=== PATIENT | male | born 1965 | race Two or more races ===

== ENCOUNTER 2018-07-16 20:40 | Emergency (ER) | payer SELFPAY ==
[2018-07-16 20:45] VITALS: BP 127/79; TEMP 98.1; BMI 26.8
--- NOTE | 2018-07-16 20:45 | PDOC ---
Rapid Medical Evaluation Time Seen by Provider: 07/16/18 20:42 Medical Evaluation: 07/16/18 20:42 Pt c/o: llq pain pain to left testicle Pt on brief exam: no palpable mass, no penile discharge pt ordered for : ua, ucx, gc/chylam Pt to proceed to the ED Discharge Disposition - Diagnosis Left sided abdominal pain - Referrals - Patient Instructions - Post Discharge Activity
[2018-07-16 21:20] LABS: URINE APPEARANCE CLEAR; URINE BILIRUBIN NEGATIVE (<2.0 mg/dL); URINE COLOR LTYELLOW; URINE GLUCOSE (UA) NEGATIVE (NEGATIVE); URINE KETONE NEGATIVE (NEGATIVE); URINE LEUK ESTERASE NEGATIVE (NEGATIVE); URINE NITRITE NEGATIVE (NEGATIVE); URINE PROTEIN NEGATIVE (NEGATIVE); URINE UROBILINOGEN NEGATIVE mg/dL (0.2-1.0)
[2018-07-16 21:29] LABS: EPI CELLS RARE /HPF (FEW); URINE MUCUS RARE
--- NOTE | 2018-07-16 21:50 | PDOC ---
History of Present Illness - General Chief Complaint: Pain Stated Complaint: LEFT SIDE PAIN Time Seen by Provider: 07/16/18 20:42 History Source: Patient Exam Limitations: No Limitations - History of Present Illness Initial Comments: 53 yo M who denies having any pmh presents to the ER after 10 days of LLQ abdominal pain which radiates down to his left testicle. He states when the pain radiates to his testicle he also experiences some penile pain. He denies any palpable massess and denies any penile discharge. He reports that it is possible the pain is worsened after he goes to the gym. He also admits to dysuria, frequency, as well as urgency. Denies flank pain, hx of kidney stones, fevers, chills, infections, chest pain, SOB, difficulty breathing, N/V/C/D, back pain, headache, neck pain, blurry vision. PCP: In [place] - doesn't know his name PSH: None reported Social Hx: Drinks alcohol recreationally, denies smoking or other substance usage. Allergies: NKA, NKDA Past History - Past Medical History Allergies/Adverse Reactions: Allergies Allergy/AdvReac Type Severity Reaction Status Date / Time No Known Allergies Allergy Verified 07/16/18 20:45 COPD: No - Suicide/Smoking/Psychosocial Hx Smoking History: Never smoked Review of Systems - Review of Systems Able to Perform ROS?: Yes Comments:: CONSTITUTIONAL: Absent: fever, no chills, no fatigue EYES: Absent: visual changes ENT: Absent: ear pain, no sore throat CARDIOVASCULAR: Absent: chest pain, no palpitations RESPIRATORY: Absent: cough, no SOB GI: Absent: abdominal pain, no nausea, no vomiting, no constipation, no diarrhea GENITOURINARY: Present: dysuria, frequency, hematuria MUSKULOSKELETAL: Absent: back pain, no arthralgia, no myalgia SKIN: Absent: rash NEURO: Absent: headache *Physical Exam - Vital Signs Last Vital Signs Temp Pulse Resp BP Pulse Ox 98.1 F 70 18 127/79 97 07/16/18 20:42 07/16/18 20:42 07/16/18 20:42 07/16/18 20:42 07/16/18 20:42 - Physical Exam Comments: GENERAL: Well-appearing, well-nourished. No apparent distress. HEENT: Normocephalic, atraumatic. PERRL, EOM intact. CARDIOVASCULAR: Normal S1, S2. Regular rate and rhythm. PULMONARY: Clear to auscultation bilaterally. ABDOMEN: Soft, non-distended, non-tender. EXTREMITIES: Normal ROM in all four extremities. No gross deformities. SKIN: Warm, dry. No rash NEUROLOGICAL: No focal neurological deficits. Male Genitalia: positive: normal genitalia, testicular tenderness (Left sided), epididymus tender, hematuria. negative: discharge, CVAT Moderate Sedation - Procedure Monitoring Vital Signs: Procedure Monitoring Vital Signs Temperature 98.1 F 07/16/18 20:42 Pulse Rate 70 07/16/18 20:42 Respiratory Rate 18 07/16/18 20:42 Blood Pressure 127/79 07/16/18 20:42 O2 Sat by Pulse Oximetry (%) 97 07/16/18 20:42 ED Treatment Course - LABORATORY CBC & Chemistry Diagram: 07/16/18 22:55 07/16/18 22:55 - ADDITIONAL ORDERS Additional order review: Laboratory Results 07/16/18 20:49 Urine Color Ltyellow Urine Appearance Clear Urine pH 6.0 Ur Specific [place] 1.018 Urine Protein Negative Urine Glucose (UA) Negative Urine Ketones Negative Urine Blood 2+ H Urine Nitrite Negative Urine Bilirubin Negative Urine Urobilinogen Negative Ur Leukocyte Esterase Negative Urine WBC (Auto) None Urine RBC (Auto) 276 Ur Epithelial Cells Rare Urine Mucus Rare - RADIOLOGY Radiology Studies Ordered: Category Date Time Status SCROTUM AND CONTENTS US [US] Stat Ultrasound 07/16/18 21:41 Ordered Medical Decision Making - Medical Decision Making 53 yo M who denies having any pmh presents to the ER after 10 days of LLQ abdominal pain which radiates down to his left testicle. He states when the pain radiates to his testicle he also experiences some penile pain. - Vitals WNL DDx IBNLT: Testicular torsion, epididymitis, gonorrhea, chlamydia, E-coli, UTI/ Pylo, kidney stones, hydrocele, testicular cancer, hernia Plan: Ua/uc, testicular US, GC/chlamydia testing, re-assess. US showed ni signs of torsion. CTAP showed a 9.5 mm kidney stone at the UVJ. - Consulted Urology - Dr. Rehman who states that given the lack of renal injury, lack of fever, and patients well appearance we should DC ihim if his pain is under control and have him follow up with Dr. Rehman on Thursday in the office. Patient is well appearing and pain free. Will DC him with urology follow up. *DC/Admit/Observation/Transfer Diagnosis at time of Disposition: Left sided abdominal pain, Kidney stone on left side - Discharge Dispostion Disposition: HOME Condition at time of disposition: Stable Decision to Admit order: No - Referrals Referrals: Agustin Galaviz MD [Staff Physician] - - Patient Instructions Printed Discharge Instructions: Kidney Stones (Alternative Therapy), Kidney Stones -- Adult Additional Instructions: You came into the ER with abdominal pain. We did a cat scan which showed you have a large kidney stone. Drink plenty of fluids. Take motrin/ibuprofen/advil for pain control. 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 It is very important for you to schedule an appointment with a urologist. We are attaching the number for Dr. Galaviz. Call up his office to schedule an appointment. He can see you on Thursday. Come back to the ER if your pain worsens, you start vomiting, get a fever, or have any other new or worsening concerns. Thank you for coming to the [facility] ER. We hope you feel better soon! Print Language: SPA - Post Discharge Activity
[2018-07-16] MEDS ORDERED: SODIUM CHLORIDE 0.9% 500 ML INFUS.BAG IV ONE (22:02)
[2018-07-16 23:05] LABS: EOS % 4.8 % (0-4.5); HEMATOCRIT 39.5 % (35.4-49); HEMOGLOBIN 13.5 GM/dL (11.7-16.9); LYMPH % 47.3 % (8-40); MCH 30.3 pg (25.7-33.7); MCHC 34.1 g/dl (32.0-35.9); MEAN CELL VOLUME 88.9 fl (80-96); MEAN PLT VOLUME 9.5 fl (7.5-11.1); MONO % 6.5 % (3.8-10.2); NEUT % 40.4 % (42.8-82.8); PLATELET COUNT 311 K/MM3 (134-434); RBC 4.44 M/mm3 (4.00-5.60); RDW 13.8 % (11.9-15.9); WHITE BLOOD COUNT 7.2 K/mm3 (4.0-10.0)
[2018-07-16 23:39] LABS: ALBUMIN 3.8 g/dl (3.4-5.0); ALK PHOS 59 U/L (45-117); ANION GAP 5 MMOL/L (8-16); BILIRUBIN,TOTAL 0.2 mg/dL (0.2-1); BLOOD UREA NITROGEN 15 mg/dL (7-18); CHLORIDE 103 mmol/L (98-107); CO2 32 mmol/L (21-32); CREATININE 0.9 mg/dL (0.55-1.3); GLUCOSE,RANDOM 112 mg/dL (74-106); POTASSIUM 4.3 mmol/L (3.5-5.1); SGOT/AST 18 U/L (15-37); SGPT/ALT 25 U/L (13-61); SODIUM 140 mmol/L (136-145)
[2018-07-17] MEDS ORDERED: KETOROLAC TROMETHAMINE 30 MG/1 ML VIAL IVPUSH ONE (00:04)
--- NOTE | 2018-07-17 00:54 | PDOC ---
Attending Attestation - Resident Resident Name: Jaime Mcintyre - ED Attending Attestation I have performed the following: I have examined & evaluated the patient, The case was reviewed & discussed with the resident, I agree w/resident's findings & plan, Exceptions are as noted - HPI HPI: 07/17/18 00:48 53 M with no PMH presents to ED with LLQ pain and L scrotal pain. Pt states that pt has had symptoms for the past 10 days. Denies any F/C. Denies vomiting or diarrhea. States that he feels like he constantly has to urinate. Denies flank pain. Denies any injury. No masses in his scrotum or abdomen. - Physicial Exam PE: 07/17/18 00:52 "GENERAL: Awake, alert, and fully oriented, in no acute distress. HEAD: No signs of trauma EYES: PERRLA, EOMI, sclera anicteric, conjunctiva clear ENT: Auricles normal inspection, hearing grossly normal, nares patent, oropharynx clear without exudates. Moist mucosa NECK: Nontender, no stepoffs, Normal ROM, supple, no lymphadenopathy, JVD, or masses LUNGS: Breath sounds equal, clear to auscultation bilaterally. No wheezes, and no crackles HEART: Regular rate and rhythm, normal S1 and S2, no murmurs, rubs or gallops ABDOMEN: Soft, nontender, normoactive bowel sounds. No guarding, no rebound. No masses EXTREMITIES: Normal range of motion, no edema. No clubbing or cyanosis. No cords, erythema, or tenderness NEUROLOGICAL: Cranial nerves II through XII intact. 5/5 strength and sensation in all extremities, Normal speech, normal gait, normal cerebellar function SKIN: Warm, Dry, normal turgor, no rashes or lesions noted. : normal scrotum, no masses, no inguinal hernia, normal cremaster reflex - Medical Decision Making 07/17/18 00:54 53 M with LLQ pain radiating to scrotum x 10 days. No hernia on exam. No evidence of torsion on exam. Possible kidney stone. - Labs, UA - scrotal US - Pain control 07/17/18 00:54 CT prelim read shows 9mm stone in L UVJ Labs wnl, no sign of infection, no LIGIA Spoke with urology bronc buster, Dr. Galaviz, who recommends outpt f/u. Pt reassessed - pain is well controlled Pt is well appearing, with normal vitals. Clinically stable for DC at this time. I discussed the physical exam findings, ancillary test results and final diagnoses with the patient. I answered all of the patient's questions. The patient was satisfied with the care received and felt comfortable with the discharge plan and treatment plan. The patient agrees to follow up with the primary care physician within 24-72 hours.
[2018-07-17 00:57] VITALS: PULSE 72
[2018-07-17] MEDS ORDERED: KETOROLAC TROMETHAMINE 30 MG/1 ML VIAL ONE (01:00)
== END 2018-07-17 01:30 | disposition home or self-care (01) ==
LOC: JER 20:40
PROC: 3E0333Z Introduction of Anti-inflammatory into Peripheral Vein, Percutaneous Approach (ICD-10-PCS; principal; 2018-07-16)
DX: N20.0 Calculus of kidney (principal)
CPT/HCPCS: 36415; 74176-TC; 76870-TC; 80053; 81003; 81015; 85025; 87086; 87491; 87591; 99285-25